=== PATIENT | female | born 1965 | race African-American/Black ===

== ENCOUNTER 2023-06-16 11:07 | Emergency (ER) | payer SELFPAY ==
[2023-06-16] MEDS ORDERED: Ketorolac Tromethamine 30 MG/ML VIAL ONE (12:06)
== END 2023-06-16 12:05 | disposition home or self-care (01) ==
LOC: CSHERS 11:07
DX: H60.503 Unspecified acute noninfective otitis externa, bilateral (principal); H73.93 Unspecified disorder of tympanic membrane, bilateral
CPT/HCPCS: 96372; 99282; J1885

== ENCOUNTER 2024-01-23 10:16 | Emergency (ER) | payer SELFPAY ==
[2024-01-23] MEDS ORDERED: Acetaminophen 500 MG TAB ONE (11:46)
== END 2024-01-23 12:20 | disposition home or self-care (01) ==
LOC: CSHERS 10:16
DX: J01.90 Acute sinusitis, unspecified (principal)
CPT/HCPCS: 71046